=== PATIENT | female | born 1985 | race African-American/Black ===

== ENCOUNTER 2022-06-22 19:09 | Emergency (ER) | payer OTHER, SELFPAY ==
[2022-06-22 19:15] VITALS: BP 136/87; PULSE 66; RESP 18; O2SAT 100
[2022-06-22] MEDS: Droperidol 5 MG/2 ML VIAL 2.5 MG IVP (19:22)
[2022-06-22] MEDS: Normal Saline 1,000 ML 1000 ML IV (19:22)
[2022-06-22 19:26] LABS: HCT 40.8 % (36.0-46.0); HGB 13.9 g/dL (11.2-15.7); MCH 31.7 pg (27.0-33.0); MCHC 34.1 % (32.0-36.0); MCV 93 fL (80-95); MPV 9.8 fL (8.0-11.0); Platelet Count 538 10^3/uL (130-400); RBC 4.39 10^6/uL (3.93-5.22); RDW 12.6 % (11.7-14.6); RDW-SD 43.4 fL; WBC 18.32 10^3/uL (4.4-10.8)
--- NOTE | 2022-06-22 19:34 | ED.GENADUL_ITS ---
Discharge Plan Disposition Patient Disposition: Home Condition: Improving Discharge Details Clinical Impression: Abdominal pain Primary Care Provider: Lissa Clark ED Provider: Nena Rodríguez Home Meds and New Rx's Prescriptions: Continued multivitamin Tablet 1 tab PO DAILY biotin 10 mg tablet 10 mg PO DAILY ferrous sulfate 134 mg (27 mg iron) tablet 134 mg PO DAILY sertraline 50 mg tablet 50 mg PO DAILY Qty: 90 3RF dextroamphetamine-amphetamine [Adderall XR] 10 mg capsule,extended release 24hr 10 mg PO DAILY MDD 10 XR, 20 IR Qty: 28 0RF dextroamphetamine-amphetamine [Adderall] 20 mg tablet 20 mg PO DAILY MDD 10 ER, 20 IR Qty: 28 0RF Rx Instructions: Please allow patient to hot die picker a week early due to travel. Discharge Instructions Instructions: Abdominal Pain (ED) Additional Instructions: I have ordered an abdominal ultrasound for you for tomorrow morning. Do not eat or drink anything after midnight. You are to call [phone] for the time of your ultrasound at 7 am tomorrow morning. Return sooner for new or worsening symptoms After your ultrasound tomorrow you are to present to the emergency department for your results Referrals: Naomi Nguyen MD [ [facility] STAFF PHYSICIAN] - Lissa Clark NP [Primary Care Provider] - Discharge Data Discharge Date/Time-TO BE ENTERED AT DEPARTURE: 06/22/22 20:43 Medical Decision Making <Nena Rodrígeuz NP - Last Filed: 06/22/22 21:44> This is a 36-year-old that presents with severe upper abdominal pain nausea vomiting and diarrhea after eating pizza this afternoon. Denies similar history. No history of abdominal surgery. We will obtain IV access give 1 L of normal saline 2.5 mg of IV droperidol 40 mg of IV pantoprazole. Routine labs to include CBC CMP lipase. Repeat abdominal exam remains benign. She remains hemodynamically stable while monitored in the department. Her labs returned unremarkable with exception of an elevated white count which is likely stress-induced. Her symptoms are markedly improved after receiving fluid droperidol and pantoprazole She is stable and agreeable to discharged home she will return tomorrow morning for scheduled outpatient abdominal ultrasound to evaluate her gallbladder. <Haris Briggs MD - Last Filed: 06/28/22 14:07> Note: I was not involved in the care of this patient. I was not consulted. My involvement was not requested. The patient was evaluated independently by JAYLEEN Rodríguez. Diagnostic workup and treatment plan, including disposition determination, was performed by JAYLEEN Rodríguez. HPI <Nena Rodríugez NP - Last Filed: 06/22/22 21:44> General Date/Time Provider Initiated Documentation: 06/22/22 19:12 . Limitations to Documentation: no limitations . Information obtained by: patient . HPI Narrative: This is a 36-year-old female patient who reports she was in her usual state of health today. She had some pizza and then laid down for a nap. She states that she was awoken by severe generalized upper abdominal pain nausea vomiting and diarrhea. Her symptoms persisted for about 3 hours so she decided to present to the emergency department for evaluation. She denies any similar history. There were others that eat the pizza that did not have the similar symptoms. She denies any history of alcohol use. She has had no abdominal surgeries. She has had no fever.No blood noted in her stool or bloody diarrhea Related Data Home Medications Medication Instructions Recorded Confirmed biotin 10 mg tablet 10 mg PO DAILY 06/08/22 06/23/22 dextroamphetamine-amphetamine 20 20 mg PO DAILY #28 tabs 06/08/22 06/23/22 mg tablet (Adderall) dextroamphetamine-amphetamine ER 10 mg PO DAILY #28 caps 06/08/22 06/23/22 10 mg 24hr capsule,extend release (Adderall XR) ferrous sulfate 134 mg (27 mg 134 mg PO DAILY 06/08/22 06/23/22 iron) tablet multivitamin 1 tab PO DAILY 06/08/22 06/23/22 sertraline 50 mg tablet 50 mg PO DAILY #90 tabs 06/08/22 06/23/22 Previous Rx's Medication Instructions Recorded dextroamphetamine-amphetamine 20 20 mg PO DAILY #28 tabs 06/08/22 mg tablet (Adderall) dextroamphetamine-amphetamine ER 10 mg PO DAILY #28 caps 06/08/22 10 mg 24hr capsule,extend release (Adderall XR) sertraline 50 mg tablet 50 mg PO DAILY #90 tabs 06/08/22 Allergies Allergy/AdvReac Type Severity Reaction Status Date / Time environmental allergies Allergy Intermediate Uncoded 06/23/22 08:53 lactose intolerance Allergy Intermediate gut issues Uncoded 06/23/22 08:53 General Stated Complaint: Nausea/Vomit/Diar ALBERT: 3 Review of Systems <Nena Rodríguez NP - Last Filed: 06/22/22 21:44> All systems reviewed & are unremarkable except as noted in HPI and below PFSH <Nena Rodríguez NP - Last Filed: 06/22/22 21:44> All Active Problems (Updated 06/23/22 @ 09:06 by Jose Marmolejo NP) Abdominal pain (Acute) Tobacco abuse (Acute) Major depressive disorder, recurrent, moderate (Acute) JORGE (generalized anxiety disorder) (Acute) ADHD, predominantly inattentive type (Chronic) Depression (Chronic) Family History Mother Melanoma Connective tissue disorder Nicolas-Danlos Syndrome Skin cancer Obesity Hypertension Arthritis Father Depression Hypertension Alcohol use disorder Paternal Grandmother Diabetes Brother Connective tissue disorder Anxiety ADHD Depression Social History Smoking/Tobacco Use Status: Current-Occasional Tobacco Type: e-cigarettes Quit status: considering quitting Counseling given: other Smoking risk assessment performed?: Yes (offered help if pt wants to quit smoking) Alcohol Intake: current Alcohol Intake frequency: 0-2 drinks per day Counseling given: Yes Details: pt feels that alcohol not an issue right now Drug use: Daily Substance use type: marijuana and inhalants Counseling given: No Adopted: No Caregiver/Support person: No Foster care: No Household members: family Housing: house Number of Children: 0 number of grandchildren: 0 Communication Needs: None Education Level: college Details: BS Do you need help understanding health information?: Never 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 Pets and animals: Yes Pets and animals: dog(s) Sexually active: Yes Do you think of yourself as: straight/heterosexual Current gender identity: female What is your relationship status?: never How often do you talk on the phone with friends or family?: three or more times per week How often do you get together with friends or relatives?: twice per week Do you belong to any clubs or organized social groups?: no Panel score (0-1 are the most socially isolated patients): 1 Duration: 15-30 minutes/day Frequency: 1-2 times per week Vesna/Sabianist: None Seatbelt use: always Helmet use: Yes Drive intox or ride w/intox otr hazmat company driver: No Do you feel safe at home: Yes Do you feel safe in your relationship?: Yes Exam <Nena Rodríguez NP - Last Filed: 06/22/22 21:44> Const General: cooperative and acute distress moderate Nutritional Appearance: average body habitus Orientation: alert, awake and oriented x3 HENMT Head: normal to inspection, normocephalic and atraumatic Mouth: oral mucosae normal Chest Chest: normal inspection of the chest Resp Effort & Inspection: tachypneic (Hyperventilating) Cardio Rate: regular rate Rhythm: regular rhythm GI Inspection: normal to inspection and non-distended Palpation: soft, not firm, no guarding, tender in the epigastrum, in the LUQ and in the RUQ and No ascites Auscultation: normal bowel sounds Skin General skin exam: no rashes or lesions noted Neuro General: patient alert, patient awake, patient oriented x3 and no focal motor deficits Extrem General: normal to inspection, full ROM and no pedal edema Course <Nena Rodríguez NP - Last Filed: 06/22/22 21:44> Vital Signs Vital signs: Vital Signs Pulse 66 06/22/22 19:15 Respiratory Rate 18 06/22/22 19:15 Blood Pressure 136/87 06/22/22 19:15 Pulse Oximetry 100 06/22/22 19:15 Temperature Source Oral 06/22/22 19:15 Pulse 66 06/22/22 19:15 Respiratory Rate 18 06/22/22 19:15 Respiratory Effort Normal, Non-Labored 06/22/22 19:14 Blood Pressure 136/87 06/22/22 19:15 Pulse Oximetry 100 06/22/22 19:15 Oxygen Delivery Method Room Air 06/22/22 19:15 Oxygen Flow Rate 0 06/22/22 19:15
[2022-06-22 19:37] LABS: Lipase 48 U/L (16-77)
[2022-06-22 19:43] LABS: ALT 20 U/L (14-59); AST 17 U/L (15-37); Albumin 4.2 g/dL (3.4-5.0); Alkaline Phosphatase 66 U/L (46-116); Anion Gap 14.9 mmol/L (3-11); BUN 10 mg/dL (7-18); Bilirubin, Total 0.3 mg/dL (0.2-1.0); CO2 24.1 mmol/L (21.0-32.0); Calcium 10.1 mg/dL (8.5-10.1); Chloride 103 mmol/L (98-107); Estimated GFR 75.34 (mL/min/1.73m2); Glucose 146 mg/dL (74-106); Magnesium 1.6 mg/dL (1.8-2.4); Potassium 3.3 mmol/L (3.5-5.1); Sodium 142 mmol/L (136-145); Total Protein 8.1 g/dL (6.4-8.2)
[2022-06-22] MEDS: Ketorolac 15 MG/ML VIAL IVP (19:48)
[2022-06-22] MEDS: Pantoprazole 40 MG VIAL IVP (19:48)
[2022-06-22 19:51] LABS: Absolute Lymphocyte Count 2.75 10^3/uL (1.2-3.4); Absolute Monocyte Count 1.65 10^3/uL (0.1-0.8); Absolute Neutrophil Count 13.56 10^3/uL (1.2-6.7); Atypical Lymphocytes % 4; Bands % 1
[2022-06-22 19:52] LABS: Absolute Eosinophil Count 0.37 10^3/uL (0.0-0.7); Diff Comment Manual Differential
[2022-06-22 19:53] LABS: RBC Morphology Normal
[2022-06-22 20:42] VITALS: BP 142/86; PULSE 68; RESP 18; O2SAT 98
== END 2022-06-22 20:43 | disposition home or self-care (01) ==
PROVIDERS: Emergency Provider Nurse Practitioner Acute Care; PCP Nurse Practitioner
DX: R10.10 Upper abdominal pain, unspecified (principal); R11.2 Nausea with vomiting, unspecified; R19.7 Diarrhea, unspecified
CPT/HCPCS: 36415; 80053; 81025; 83690; 96361; 96374; 96375; 99284; 83735; 85025; J1790; J1885

== ENCOUNTER 2022-06-23 08:46 | Emergency (ER) | payer OTHER, SELFPAY ==
[2022-06-23 08:49] VITALS: BP 116/71; PULSE 89; RESP 15; TEMP 36.6; O2SAT 99
--- NOTE | 2022-06-23 09:05 | ED.GENADUL_ITS ---
Discharge Plan Disposition Patient Disposition: Home Condition: Improving Discharge Details Clinical Impression: Abdominal pain Primary Care Provider: Lissa Clark ED Provider: Jose Marmolejo Home Meds and New Rx's Prescriptions: Continued multivitamin Tablet 1 tab PO DAILY biotin 10 mg tablet 10 mg PO DAILY ferrous sulfate 134 mg (27 mg iron) tablet 134 mg PO DAILY sertraline 50 mg tablet 50 mg PO DAILY Qty: 90 3RF dextroamphetamine-amphetamine [Adderall XR] 10 mg capsule,extended release 24hr 10 mg PO DAILY MDD 10 XR, 20 IR Qty: 28 0RF dextroamphetamine-amphetamine [Adderall] 20 mg tablet 20 mg PO DAILY MDD 10 ER, 20 IR Qty: 28 0RF Rx Instructions: Please allow patient to continuous 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 Discontinued dextroamphetamine-amphetamine [Adderall XR] 10 mg capsule,extended release 24hr 10 mg PO DAILY MDD 10 ER, 20 IR Qty: 28 0RF Patient Comments: duplicate 06/23/22 CT dextroamphetamine-amphetamine [Adderall XR] 10 mg capsule,extended release 24hr 10 mg PO DAILY MDD 10 ER, 20 IR Qty: 28 0RF Patient Comments: duplicate 06/23/22 CT Rx Instructions: Please allow patient to continuous 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 dextroamphetamine-amphetamine [Adderall] 20 mg tablet 20 mg PO DAILY MDD 10 ER, 20 IR Qty: 28 0RF Patient Comments: duplicate 06/23/22 CT dextroamphetamine-amphetamine [Adderall] 20 mg tablet 20 mg PO DAILY MDD 10 ER, 20 IR Qty: 28 0RF Patient Comments: duplicate 06/23/22 CT dextroamphetamine-amphetamine [Adderall] 20 mg tablet 20 mg PO DAILY Patient Comments: duplicate 06/23/22 CT Discharge Instructions Instructions: Abdominal Pain (ED) Additional Instructions: Your ultrasound result were reassuring this morning along with your repeat examination and that your abdominal pain is improving. You may slowly advance your diet as tolerated and stay well-hydrated and get plenty of rest today. If you have any new or significant worsening of symptoms feel free to return to the emergency department for reassessment otherwise follow-up your primary care provider as needed. Stand Alone Forms: Work Release Referrals: Lissa Clark, BIOGEOGRAPHER [Primary Care Provider] - (As needed for reassessment) Medical Decision Making Patient presenting to the emergency department for ultrasound results. Patient was seen in the ED last night and treated for nausea vomiting and belly pain. Came back this morning for ultrasound. She states significant improvement, no more vomiting, no pain or discomfort and actually starting to have a return of her appetite. Preliminary results were received from the air analysis engineering technician that stated no findings noted. Reassessed patient's abdomen which was unremarkable and no tenderness noted. Given that patient is improving I feel that no further work-up is needed. After discussion of diagnosis and plan of care patient has no further needs, questions, or concerns and states clear understanding to return to the emergency department for any worsening symptoms. This documentation was generated using [employer] system, please disregard any oddities of phrase or misspellings. Medical Records Medical records reviewed: Yes I reviewed the patient's medical records. Medical records narrative: Reviewed emergency department visit dated last night Imaging Data Radiologic Study: Imaging: Ultrasound Radiologist's impression: Exam(s) US ABDOMEN LIMITED EXAM: US ABDOMEN LIMITED CLINICAL HISTORY: UPPER ABD PAIN TECHNIQUE: Ultrasound abdomen performed using standard protocol. COMPARISON: No exams were available for comparison FINDINGS: LIVER: Normal size. Normalechogenicity. No focal liver lesions are seen.. GALLBLADDER: No evidence of cholelithiasis. No evidence of wall thickening. No pericholecystic fluid identified. BLANC'S SIGN: Negative. BILIARY SYSTEM: No intrahepatic or extrahepatic biliary ductal dilation. RIGHT KIDNEY: Normal size. No evidence of renal calculi. No evidence of hydronephrosis. No suspicious renal mass. No cyst identified. PANCREAS: Normal where visualized. ABDOMINAL AORTA AND IVC: Visualized portions normal caliber. ASCITES: None seen. IMPRESSION: Normal sonographic appearance of the right upper quadrant. Lab Data Lab results reviewed: Yes I reviewed the patient's lab results. HPI General Mode of arrival: ambulatory . Date/Time Provider Initiated Documentation: 06/23/22 09:00 . Limitations to Documentation: no limitations . Information obtained by: patient and RN notes reviewed . History of Present Illness 36 year old F presents to the emergency department with the chief complaint of Here for ultrasound results, abdominal pain, Quality is described as aching, and is localized to the abdomen. Patient reports no radiation. Patient started experiencing this day(s) (1) and it has been now resolved. No exacerbating factors reported . Patient notes no other symptoms.. Related Data Home Medications Medication Instructions Recorded Confirmed biotin 10 mg tablet 10 mg PO DAILY 06/08/22 06/23/22 dextroamphetamine-amphetamine 20 20 mg PO DAILY #28 tabs 06/08/22 06/23/22 mg tablet (Adderall) dextroamphetamine-amphetamine ER 10 mg PO DAILY #28 caps 06/08/22 06/23/22 10 mg 24hr capsule,extend release (Adderall XR) ferrous sulfate 134 mg (27 mg 134 mg PO DAILY 06/08/22 06/23/22 iron) tablet multivitamin 1 tab PO DAILY 06/08/22 06/23/22 sertraline 50 mg tablet 50 mg PO DAILY #90 tabs 06/08/22 06/23/22 Previous Rx's Medication Instructions Recorded dextroamphetamine-amphetamine 20 20 mg PO DAILY #28 tabs 06/08/22 mg tablet (Adderall) dextroamphetamine-amphetamine ER 10 mg PO DAILY #28 caps 06/08/22 10 mg 24hr capsule,extend release (Adderall XR) sertraline 50 mg tablet 50 mg PO DAILY #90 tabs 06/08/22 Allergies Allergy/AdvReac Type Severity Reaction Status Date / Time environmental allergies Allergy Intermediate Uncoded 06/23/22 08:53 lactose intolerance Allergy Intermediate gut issues Uncoded 06/23/22 08:53 General Stated Complaint: Recheck ALBERT: 4 Review of Systems Constitutional Constitutional: Denies chills and Denies fever(s) Gastrointestinal Gastrointestinal: Reports as per HPI, Denies abdominal pain, Denies vomiting and Denies hematemesis PFSH All Active Problems (Updated 06/23/22 @ 09:06 by Jose Marmolejo NP) Abdominal pain (Acute) Tobacco abuse (Acute) Major depressive disorder, recurrent, moderate (Acute) JORGE (generalized anxiety disorder) (Acute) ADHD, predominantly inattentive type (Chronic) Depression (Chronic) Family History Mother Melanoma Connective tissue disorder Nicolas-Danlos Syndrome Skin cancer Obesity Hypertension Arthritis Father Depression Hypertension Alcohol use disorder Paternal Grandmother Diabetes Brother Connective tissue disorder Anxiety ADHD Depression Social History Smoking/Tobacco Use Status: Current-Occasional Tobacco Type: e-cigarettes Quit status: considering quitting Counseling given: other Smoking risk assessment performed?: Yes (offered help if pt wants to quit smoking) Alcohol Intake: current Alcohol Intake frequency: 0-2 drinks per day Counseling given: Yes Details: pt feels that alcohol not an issue right now Drug use: Daily Substance use type: marijuana and inhalants Counseling given: No Adopted: No Caregiver/Support person: No Foster care: No Household members: family Housing: house Number of Children: 0 number of grandchildren: 0 Communication Needs: None Education Level: college Details: BS Do you need help understanding health information?: Never 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 Pets and animals: Yes Pets and animals: dog(s) Sexually active: Yes Do you think of yourself as: straight/heterosexual Current gender identity: female What is your relationship status?: never How often do you talk on the phone with friends or family?: three or more times per week How often do you get together with friends or relatives?: twice per week Do you belong to any clubs or organized social groups?: no Panel score (0-1 are the most socially isolated patients): 1 Duration: 15-30 minutes/day Frequency: 1-2 times per week Vesna/Scientologist: None Seatbelt use: always Helmet use: Yes Drive intox or ride w/intox bulk truck driver: No Do you feel safe at home: Yes Do you feel safe in your relationship?: Yes Exam Const General: cooperative Orientation: alert, awake and oriented x3 Resp Effort & Inspection: normal respiratory effort and able to speak in complete sentences Auscultation: clear to auscultation bilaterally Cardio Rate: regular rate Rhythm: regular rhythm Heart Sounds: S1 normal and S2 normal GI Palpation: soft, no hepatosplenomegaly, not firm, no guarding, no masses, no pulsatile masses, not rigid, no splenomegaly and nontender Auscultation: hypoactive bowel sounds Back/Spine/Pelvis Back: no CVA tenderness Neuro General: patient alert, patient awake, patient oriented x3, gait normal and moves all extremities Course Vital Signs Vital signs: Vital Signs Temperature 36.6 C 06/23/22 08:49 Pulse 89 06/23/22 08:49 Respiratory Rate 15 06/23/22 08:49 Blood Pressure 116/71 06/23/22 08:49 Pulse Oximetry 99 06/23/22 08:49 Temperature 36.6 C 06/23/22 08:49 Temperature Source Temporal Artery Scan 06/23/22 08:49 Pulse 89 06/23/22 08:49 Respiratory Rate 15 06/23/22 08:49 Respiratory Effort Normal 06/23/22 08:50 Blood Pressure 116/71 06/23/22 08:49 Blood Pressure Position Sitting 06/23/22 08:49 Pulse Oximetry 99 06/23/22 08:49 Oxygen Delivery Method Room Air 06/23/22 08:49 Oxygen Flow Rate 0 06/23/22 08:49 Pain Level 0 06/23/22 08:49 PAWSS Have you Been Recently Intoxicated or Drunk Within the Last 30 days?: No Have you Ever Experienced Previous Episodes of Alcohol Withdrawal?: No Have you ever Experienced Withdrawal Seizures?: No Have you ever Experienced Delirium Tremens(DT)s?: No Have you ever undergone Alcohol Rehabilitation Treatment (i.e, inpt ot outpatient treatment programs)?: No Have you ever Experienced Blackouts?: No Have you ever Combined Alcohol with other Downers within the last 90 days?: No Have you ever Combined Alcohol with any other Substance of Abuse during the last 90 days?: No Result: 0
== END 2022-06-23 09:23 | disposition home or self-care (01) ==
PROVIDERS: Emergency Provider Nurse Practitioner Family; PCP Nurse Practitioner
DX: Z71.2 Person consulting for explanation of examination or test findings (principal); R10.9 Unspecified abdominal pain
CPT/HCPCS: 99281; 99282

== ENCOUNTER 2022-07-19 03:42 | Outpatient (CLI) | payer OTHER, SELFPAY ==
[2022-07-22 12:16] LABS: Antimullerian Hormone 2.2 ng/mL (0.15-7.5)
== END 2022-07-19 03:43 | disposition home or self-care (01) ==
LOC: LBO 03:42
PROVIDERS: PCP Nurse Practitioner; Visit Provider Obstetrics & Gynecology Gynecology
DX: Z31.69 Encounter for other general counseling and advice on procreation (principal)
CPT/HCPCS: 36415; 86850; 86900; 86901; 83520

== ENCOUNTER 2022-12-27 11:17 | Outpatient (REF) | payer OTHER, SELFPAY ==
--- NOTE | 2022-12-27 10:30 | LIPBX_PTH ---
PATIENT: Miya Dee LOC: [facility] U#:[id number] AGE/SX: 37/F ROOM: RE12/27/[address]: Reji Dey MD : 1985 BED: DIS: 12/27/2022 SPEC #: [id number] RECD: 12/27/22 16:29 STATUS: SWATI REQ #: [id number] COURTNEY: 12/27/22 10:[address]: Reji Dey DEPT: Surgical Specimen RECD BY: Marlys Fermin ENTERED: 12/27/22 16:30 SP TYPE: LIPBX OTHR DR: Lissa Clark APRN Tissues: 1 - LIP BIOPSY/RESECTION Procedures: GROSS AND MICRO LEVEL 4 Comments: [id number]
== END 2022-12-27 11:18 | disposition home or self-care (01) ==
LOC: LBN 11:17
PROVIDERS: PCP Nurse Practitioner; Visit Provider Otolaryngology
DX: D10.0 Benign neoplasm of lip (principal)
CPT/HCPCS: 88305

== ENCOUNTER 2023-02-08 11:17 | Outpatient (CLI) | payer MEDICAID, SELFPAY ==
--- NOTE | 2023-02-08 11:15 | RT.EKG_ITS ---
APPROVED REPORT Exam: Resting ECG Reason for Exam: medication Patient Location: O HR:80 bpm ECG Measurements Heart Rate 80 AXIS NM 139 P 41 QRSd 88 QRS 42 QT 352 T 31 QTc 406 Conclusion Sinus rhythm...normal P axis, V-rate 50- 99 Borderline T wave abnormalities...T/QRS ratio < 1/20 or flat T I have reviewed and interpreted ECG and agree with software generated interpretation.
== END 2023-02-08 11:18 | disposition home or self-care (01) ==
LOC: DI.KIM 11:18
PROVIDERS: PCP Nurse Practitioner; Visit Provider Nurse Practitioner
DX: Z51.81 Encounter for therapeutic drug level monitoring (principal)
CPT/HCPCS: 93010

== ENCOUNTER → 2023-05-20 00:47 | Outpatient (CLI) | payer MEDICAID, SELFPAY ==
--- NOTE | 2023-05-20 07:30 | DI.MRI_ITS ---
Exam(s) MR BRAIN WO EXAM: MR BRAIN WO CLINICAL HISTORY: Head injury x 2, LOC 12/2021,headaches,poor memory.r51.9,r41.3,z87.898 TECHNIQUE: Multiplanar multisequence MRI of the brain was performed. COMPARISON: No exams were available for comparison FINDINGS: CEREBRAL PARENCHYMA: There is no evidence of intracranial hemorrhage, mass effect, or shift of midline structures. There are no extra-axial fluid collections. Ventricles are not enlarged or shifted. There is no significant focal signal abnormality in the cerebellar hemispheres nor within the saji, m idbrain, and thalami. There is no abnormal signal abnormality in the periventricular white matter. Small developmental sub lenticular cyst on the left side incidentally noted. There is no significant focal signal abnormality evident on diffusion imaging to suggest acute ischem ic event. No evidence of demyelinating disease. PITUITARY GLAND: No mass nor parasellar abnormality. No obvious abnormality in the cavernous sinuses. FLOW VOIDS: The expected flow void are noted. No evidence of obvious aneurysm nor obvious vascular ma lformation. PARANASAL SINUSES: Mucosal thickening in both maxillary sinuses. There is a prominent post inflammat ory retention cyst in the right maxillary sinus which measures 2.6 cm AP x 2 cm wide by 3 cm cyst in the 30 sinus. No acute fluid levels. Mild mucosal thickening is noted in the sphenoid and ethmoidal air cells. ORBITS: No obvious findings. IMPRESSION: No significant intracranial findings on this noninfused MRI scan of the brain. Paranasal sinus disease as above. There is a prominent post inflammatory retention cysts noted in th e right maxillary sinus. DATA REPOSITORY:
== END ==
PROVIDERS: PCP Nurse Practitioner; Visit Provider Nurse Practitioner
DX: R51.9 Headache, unspecified (principal); R41.3 Other amnesia; J34.1 Cyst and mucocele of nose and nasal sinus; J32.4 Chronic pansinusitis; Z87.898 Personal history of other specified conditions
CPT/HCPCS: 70551

== ENCOUNTER 2023-05-20 01:52 | Outpatient (CLI) | payer MEDICAID, SELFPAY ==
[2023-05-20 13:37] LABS: ALT 21 U/L (14-59); AST 12 U/L (15-37)
== END 2023-05-20 01:53 | disposition home or self-care (01) ==
PROVIDERS: PCP Nurse Practitioner; Visit Provider Nurse Practitioner Gerontology
DX: F10.20 Alcohol dependence, uncomplicated (principal)
CPT/HCPCS: 36415; 84450; 84460

== ENCOUNTER 2023-07-07 15:15 | Emergency (ER) | payer MEDICAID, SELFPAY ==
[2023-07-07 15:18] VITALS: PULSE 69; RESP 18; TEMP 36.4; O2SAT 94
--- NOTE | 2023-07-07 15:30 | DI.CT_ITS ---
Exam(s) CT ABDOMEN PELVIS W EXAM: CT ABDOMEN PELVIS W CLINICAL HISTORY: lower abdominal pain. TECHNIQUE: Imaging Protocol: Axial computed tomography images with coronal and sagittal reformatted images were created and reviewed CONTRAST MATERIAL: Intravenous: Omnipaque-350 100cc Oral: None COMPARISON: No exams were available for comparison FINDINGS: Images blurred by motion artifact VISUALIZED LUNG BASES: No nodules nor pleural effusions evident. ABDOMEN: There is no ascites. LIVER: There are no focal hepatic lesions evident. No dilated intrahepatic ducts. GALLBLADDER/BILIARY: No obvious gallbladder pathology. CBD is not dilated. PANCREAS: No evidence of pancreatic mass nor dilatation of the pancreatic duct. SPLEEN: Spleen is not enlarged. No obvious intrasplenic lesions. Splenic and portal veins are paten t. ADRENALS: There are no significant adrenal masses. KIDNEYS:No cysts evident. No solid renal masses. No calculi nor hydronephrosis.. ABDOMINAL AORTA: Abdominal aorta is not enlarged. LYMPH NODES:There is no retroperitoneal nor paraaortic adenopathy. ABDOMINAL WALL: No evidence of significant anterior abdominal wall nor inguinal hernia. GI: There is no evidence of bowel obstruction, free air, nor abscess. PELVIS: GI: No evidence of appendicitis.Abundant fecal material noted in the colon but no evidence of signifi cant diverticular disease. LYMPH NODES: There is no intrapelvic nor inguinal adenopathy. REPRODUCTIVE: Uterus normal size. There is a cyst in the left adnexa probably an ovarian cyst measur ing 3.3 x 2.5 cm. Appears unilocular. No surrounding fluid nor fluid in the cul-de-sac. Right adne xa appears unremarkable. URINARY BLADDER: No calculi nor obvious masses evident OSSEOUS: No fractures and no significant osseous lesions. 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 There is no disc space n arrowing at this level evident. IMPRESSION: 1. Study somewhat limited by motion artifact. However, there appears to be a 3.3 x 2.5 cm left ovar larissa cyst. No obvious free fluid. Right adnexa unremarkable. 2. No evidence of appendicitis. 3. Abundant fecal material noted in the colon. No significant diverticular disease. Called by myself to ER. RADIATION DOSE DELIVERED: 687.74mGy.cm Total DLP DATA REPOSITORY: All CT scans at this facility are submitted to the National Radiology Data Registry (NRDR) Dose Index Registry (DIR) with the [employer] (A[employer]). RADIATION OPTIMIZATION: All CT scans at this facility use at least one of these dose optimization te chniques: automated exposure control; mA and/or kV adjustment per patient size (includes targeted exa ms where dose is matched to clinical indication); or iterative reconstruction.
--- NOTE | 2023-07-07 15:31 | W.ED.GENAD ---
Discharge Plan Disposition Patient Disposition: Home Condition: Stable Discharge Details Clinical Impression: Nausea & vomiting, Abdominal pain Primary Care Provider: Lissa Clark ED Provider: El Card Home Meds and New Rx's Prescriptions: New ondansetron 4 mg tablet,disintegrating 4 mg PO Q8H PRN (Reason: nausea and vomiting) Qty: 30 0RF Continued naltrexone 50 mg tablet 50 mg PO DAILY dextroamphetamine-amphetamine [Adderall XR] 10 mg capsule,extended release 24hr 10 mg PO DAILY MDD 10 XR, 20 IR Qty: 28 0RF dextroamphetamine-amphetamine [Adderall] 20 mg tablet 20 mg PO DAILY MDD 10 ER, 20 IR Qty: 28 0RF Rx Instructions: Please allow patient to cone picker a week early due to travel. dextroamphetamine-amphetamine 10 mg capsule,extended release 24hr 10 mg PO DAILY MDD 10 ER, 20 IR Qty: 28 0RF dextroamphetamine-amphetamine 20 mg tablet 20 mg PO DAILY MDD 10ER, 20IR Qty: 28 0RF dextroamphetamine-amphetamine [Adderall XR] 10 mg capsule,extended release 24hr 10 mg PO DAILY MDD 10 XR, 20 IR Qty: 28 0RF dextroamphetamine-amphetamine 20 mg tablet 20 mg PO DAILY MDD 10ER, 20IR Qty: 28 0RF zinc acetate 50 mg (zinc) capsule 50 mg PO DAILY cholecalciferol (vitamin D3) 25 mcg (1,000 unit) capsule 25 mcg PO DAILY iron 65 mg PO ascorbate calcium (vitamin C) 500 mg tablet 500 mg PO DAILY magnesium 50 mg PO sertraline 50 mg tablet 50 mg PO DAILY Qty: 90 3RF Discharge Instructions Additional Instructions: Your blood work and CAT scan did not show any significant findings, you do have a small left-sided ovarian cyst. Follow-up with your primary care provider within 1 week especially if you continue to have symptoms If you feel more ill, or have new symptoms such as difficulty breathing or high fevers return to the emergency department for reevaluation HPI General Date/Time Provider Initiated Documentation: 07/07/23 15:20. Limitations to Documentation: no limitations. Information obtained by: patient. History of Present Illness 37 year old F presents to the emergency department with the chief complaint of abdominal pain, described as severe, Quality is described as sharp, and is localized to the abdomen. Patient reports no radiation. Patient started experiencing this hour(s) (8) and it has been constant. No relieving factors improve symptom(s), No exacerbating factors reported . Patient notes fever/chills; denies chest pain and shortness of breath. Patient did receive the following treatments prior to arrival, none Related Data Home Medications Medication Instructions Recorded Confirmed ascorbate calcium (vitamin C) 500 500 mg PO DAILY 04/13/23 04/13/23 mg tablet cholecalciferol (vitamin D3) 25 25 mcg PO DAILY 04/13/23 04/13/23 mcg (1,000 unit) capsule iron 65 mg PO 04/13/23 04/13/23 magnesium 50 mg PO 04/13/23 04/13/23 zinc acetate 50 mg (zinc) capsule 50 mg PO DAILY 04/13/23 04/13/23 dextroamphetamine-amphetamine 20 20 mg PO DAILY #28 tabs 05/04/23 05/04/23 mg tablet dextroamphetamine-amphetamine 20 20 mg PO DAILY #28 tabs 05/04/23 05/04/23 mg tablet dextroamphetamine-amphetamine 20 20 mg PO DAILY #28 tabs 05/04/23 05/04/23 mg tablet (Adderall) dextroamphetamine-amphetamine ER 10 mg PO DAILY #28 caps 05/04/23 05/04/23 10 mg 24hr capsule,extend release dextroamphetamine-amphetamine ER 10 mg PO DAILY #28 caps 05/04/23 05/04/23 10 mg 24hr capsule,extend release (Adderall XR) dextroamphetamine-amphetamine ER 10 mg PO DAILY #28 caps 05/04/23 05/04/23 10 mg 24hr capsule,extend release (Adderall XR) naltrexone 50 mg tablet 50 mg PO DAILY 05/04/23 sertraline 50 mg tablet 50 mg PO DAILY #90 tabs 06/22/23 ondansetron 4 mg disintegrating 4 mg PO Q8H PRN nausea and 07/07/23 tablet vomiting #30 tabs Previous Rx's Medication Instructions Recorded dextroamphetamine-amphetamine 20 20 mg PO DAILY #28 tabs 05/04/23 mg tablet dextroamphetamine-amphetamine 20 20 mg PO DAILY #28 tabs 05/04/23 mg tablet dextroamphetamine-amphetamine 20 20 mg PO DAILY #28 tabs 05/04/23 mg tablet (Adderall) dextroamphetamine-amphetamine ER 10 mg PO DAILY #28 caps 05/04/23 10 mg 24hr capsule,extend release dextroamphetamine-amphetamine ER 10 mg PO DAILY #28 caps 05/04/23 10 mg 24hr capsule,extend release (Adderall XR) dextroamphetamine-amphetamine ER 10 mg PO DAILY #28 caps 05/04/23 10 mg 24hr capsule,extend release (Adderall XR) sertraline 50 mg tablet 50 mg PO DAILY #90 tabs 06/22/23 ondansetron 4 mg disintegrating 4 mg PO Q8H PRN nausea and 07/07/23 tablet vomiting #30 tabs Allergies Allergy/AdvReac Type Severity Reaction Status Date / Time environmental allergies Allergy Intermediate unknown Uncoded 07/07/23 15:22 lactose intolerance Allergy Intermediate gut issues Uncoded 07/07/23 15:22 General Stated Complaint: Abd Prob ALBERT: 3 Review of Systems All systems reviewed & are unremarkable except as noted in HPI and below Constitutional Constitutional: Denies chills and Denies fever(s) Cardiovascular Cardiovascular: Denies chest pain and Denies dyspnea Respiratory Respiratory: Denies cough and Denies dyspnea Gastrointestinal Gastrointestinal: Reports abdominal pain and Reports vomiting Genitourinary Genitourinary: Denies dysuria Integumentary/Breasts Skin/Breast: Denies rash Exam Const Orientation: alert [facility] Head: normal to inspection Ears: external ears normal General nose exam: external nose normal Mouth: moist mucous membranes Eyes General: appearance normal, both eyes and all related structures Neck Neck: normal visual inspection Resp Effort & Inspection: normal respiratory effort and able to speak in complete sentences Cardio Rate: regular rate GI Palpation: soft and tender Skin General skin exam: no rashes or lesions noted Neuro General: patient alert and patient oriented x3 Extrem General: normal to inspection Psych Mental Status: mental status grossly normal Course Vital Signs Vital signs: Vital Signs Temperature 36.4 C L 07/07/23 15:18 Pulse 69 07/07/23 15:18 Respiratory Rate 18 07/07/23 15:18 Pulse Oximetry 94 07/07/23 15:18 Temperature 36.4 C L 07/07/23 15:18 Temperature Source Skin 07/07/23 15:18 Pulse 69 07/07/23 15:18 Respiratory Rate 18 07/07/23 15:18 Pulse Oximetry 94 07/07/23 15:18 Oxygen Delivery Method Room Air 07/07/23 15:18 Oxygen Flow Rate 0 07/07/23 15:18 Medical Decision Making 37-year-old female with a history of ADHD, anxiety, depression, daily marijuana use, who comes in with sharp severe lower abdominal pain starting this morning. She says it started after she woke up from a nap, also has had vomiting. She denies any other drugs other than marijuana use, does not use alcohol. She states she has had pain like this before with negative workups. She is alert and moaning very loudly when I entered the room, she does constantly fidget and move on the bed. Abdomen is soft with tenderness in the left lower quadrant and right lower quadrant when distracted seems to have less tenderness. Suspect this could be related to her daily marijuana use but given degree of pain we will check a CBC, CMP, lipase, lactate and obtain a CT abdomen pelvis to evaluate for entities such as appendicitis and diverticulitis. Labs unremarkable, CT shows left-sided ovarian cyst. Patient now asymptomatic and feels significantly better and has no abdominal tenderness on exam, given the cyst is less than 4 cm doubt torsion. Given she has no pain now do not feel pelvic ultrasound indicated. She is stable for discharge advised to follow-up with her PCP and return precautions given Differential Diagnosis Differential Diagnosis: Cyclic vomiting syndrome, cannabinoid hyperemesis, appendicitis, diverticul Medical Records Medical records reviewed: Yes I reviewed the patient's medical records. Imaging Data Radiologic Study: Attestation: I personally reviewed and interpreted this imaging study as follows: Imaging: CT Scan Radiologist's impression: IMPRESSION: 1. Study somewhat limited by motion artifact. However, there appears to be a 3.3 x 2.5 cm left ovarian cyst. No obvious free fluid. Right adnexa unremarkable. 2. No evidence of appendicitis. 3. Abundant fecal material noted in the colon. No significant diverticular disease. Lab Data Lab results reviewed: Yes I reviewed the patient's lab results. Quality:SDOH Health Related Social Needs: No Data to Display [facility] All Active Problems (Updated 07/07/23 @ 17:41 by El Card MD) Abdominal pain (Acute) Nausea & vomiting (Acute) Alcohol use disorder (Chronic) Medication monitoring encounter (Acute) Diarrhea (Acute ~08/2022) 09/23/22 GI Refractory nausea and vomiting (Acute ~08/2022) 09/23/22 DH GI Chronic rhinitis (Acute) 08/23/22 DH Allergy Rh D negative blood type (Acute) Encounter for preconception consultation (Acute) 07/2022. AMH 2.2 (0.15-7.5 ng/ml) Tobacco abuse (Acute) Major depressive disorder, recurrent, moderate (Acute) JORGE (generalized anxiety disorder) (Acute) ADHD, predominantly inattentive type (Chronic) Depression (Chronic) Medical History (Updated 07/07/23 @ 17:41 by El Card MD) Nasal septal perforation Lip lesion Allergic rhinitis due to pollen 10/11/22 Dh Allergy Allergic rhinitis due to animal (cat) (dog) hair and dander 10/11/22 DH Allergy, and allergy skin testing Lactose intolerance 08/23/22 saw DH Allergy Hip dysplasia As a child. Family History Mother Melanoma Connective tissue disorder Nicolas-Danlos Syndrome Skin cancer Obesity Hypertension Arthritis Father Depression Hypertension Alcohol use disorder Paternal Grandmother Diabetes Brother Connective tissue disorder Anxiety ADHD Depression Social History (Updated 08/05/22 @ 18:43 by Miriam Matute MD) Smoking/Tobacco Use Status: Current-Occasional Tobacco Type: e-cigarettes Quit status: considering quitting Counseling given: other Smoking risk assessment performed?: Yes (offered help if pt wants to quit smoking) Alcohol Intake: current Alcohol Intake frequency: 0-2 drinks per day Counseling given: Yes Details: pt feels that alcohol not an issue right now Drug use: Daily Substance use type: marijuana and inhalants Counseling given: No Adopted: No Caregiver/Support person: No Foster care: No Household members: family and other Details: New relationship - Nate Housing: house Number of Children: 0 number of grandchildren: 0 Communication Needs: None Education Level: college Details: BS Do you need help understanding health information?: Never 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 Pets and animals: Yes Pets and animals: dog(s) Sexually active: Yes Do you think of yourself as: straight/heterosexual Current gender identity: female What is your relationship status?: never How often do you talk on the phone with friends or family?: three or more times per week How often do you get together with friends or relatives?: twice per week Do you belong to any clubs or organized social groups?: no Panel score (0-1 are the most socially isolated patients): 1 Duration: 15-30 minutes/day Frequency: 1-2 times per week Vesna/Pentecostalism: None Seatbelt use: always Helmet use: Yes Drive intox or ride w/intox route relief driver: No Do you feel safe at home: Yes Do you feel safe in your relationship?: Yes
[2023-07-07 16:02] LABS: Abs Immature Grans 0.03 10^3/uL (0.0-0.06); Absolute Basophil Count 0.05 10^3/uL (0.0-0.2); Absolute Eosinophil Count 0.54 10^3/uL (0.0-0.7); Absolute Monocyte Count 0.39 10^3/uL (0.1-0.8); Absolute Neutrophil Count 7.62 10^3/uL (1.2-6.7); Basophils % 0.5 %; Eosinophils % 5.2 %; HCT 35.2 % (36.0-46.0); HGB 11.8 g/dL (11.2-15.7); Immature Grans % 0.3 %; Lactate 1.1 mmol/L (0.6-1.4); Lymphocytes % 17.3 %; MCH 30.3 pg (27.0-33.0); MCHC 33.5 % (32.0-36.0); MCV 91 fL (80-95); MPV 9.6 fL (8.0-11.0); Monocytes % 3.7 %; Platelet Count 469 10^3/uL (130-400); RBC 3.89 10^6/uL (3.93-5.22); RDW 12.7 % (11.7-14.6); RDW-SD 42.1 fL; WBC 10.43 10^3/uL (4.4-10.8)
[2023-07-07 16:19] LABS: ALT 20 U/L (14-59); AST 14 U/L (15-37); Albumin 4.3 g/dL (3.4-5.0); Alkaline Phosphatase 68 U/L (46-116); Anion Gap 8.1 mmol/L (3-11); BUN 9 mg/dL (7-18); Bilirubin, Total 0.5 mg/dL (0.2-1.0); CO2 27.9 mmol/L (21.0-32.0); CREATININE 0.8 mg/dL (0.55-1.02); Calcium 9.7 mg/dL (8.5-10.1); Chloride 102 mmol/L (98-107); Estimated GFR 97.87 (mL/min/1.73m2); Glucose 110 mg/dL (74-106); Lipase 28 U/L (16-77); Magnesium 1.9 mg/dL (1.8-2.4); Potassium 3.7 mmol/L (3.5-5.1); Sodium 138 mmol/L (136-145); Total Protein 7.6 g/dL (6.4-8.2)
[2023-07-07] MEDS: Normal Saline 1,000 ML 1000 ML IV (16:20)
[2023-07-07] MEDS: Normal Saline - Diluent 50 ML VIAL IJ (16:22)
[2023-07-07] MEDS: Omnipaque 350 MG/ML 100 ML BTL IJ (16:22)
[2023-07-07 16:29] LABS: HCG Qual (Serum) Negative
[2023-07-07] MEDS: Droperidol 5 MG/2 ML VIAL 2.5 MG IVP (16:35)
[2023-07-07] MEDS: Ketorolac 15 MG/ML VIAL IVP (16:36)
[2023-07-07 16:37] VITALS: BP 152/87; PULSE 57; RESP 16; O2SAT 100
[2023-07-07 16:41] LABS: Procalcitonin < 0.1 ng/mL
[2023-07-07 17:44] VITALS: BP 139/75; PULSE 62; RESP 16; TEMP 36.7; O2SAT 99
== END 2023-07-07 17:40 | disposition home or self-care (01) ==
PROVIDERS: Emergency Provider Emergency Medicine; PCP Nurse Practitioner
DX: R10.30 Lower abdominal pain, unspecified (principal); R11.2 Nausea with vomiting, unspecified; N83.202 Unspecified ovarian cyst, left side; F17.290 Nicotine dependence, other tobacco product, uncomplicated
CPT/HCPCS: 36415; 80053; 83690; 84145; 96361; 96374; 96375; 99285; 74177; 83605; 83735; 84703; 85025; 99284; J1790; J1885; J3490

== ENCOUNTER 2023-08-06 06:51 | Emergency (ER) | payer MEDICAID, SELFPAY ==
--- NOTE | 2023-08-06 07:00 | RT.EKG_ITS ---
APPROVED REPORT Exam: Resting ECG Reason for Exam: abominal pain Patient Location: E HR:60 bpm ECG Measurements Heart Rate 60 AXIS MD 162 P 73 QRSd 80 QRS 64 QT 413 T 28 QTc 413 Conclusion Sinus rhythm...normal P axis, V-rate 60- 99 Low voltage, precordial leads...precordial leads <1.0mV sinus rhythm, normal axis, normal intervals, low voltage, t wave inversions V1-V3
[2023-08-06 07:01] VITALS: BP 107/70; PULSE 61; RESP 16; TEMP 36.6; O2SAT 100
[2023-08-06 07:07] VITALS: BP 107/70; PULSE 56; O2SAT 97
[2023-08-06 07:16] VITALS: BP 159/138; PULSE 98; O2SAT 99
--- NOTE | 2023-08-06 07:17 | W.ED.GENAD ---
Discharge Plan Disposition Patient Disposition: Home Condition: Improving Discharge Details Chief Complaint: Abd Prob Clinical Impression: Abdominal pain Primary Care Provider: Lissa Clark ED Provider: Shashi Carmen Home Meds and New Rx's Prescriptions: No Action naltrexone 50 mg tablet 50 mg PO DAILY dextroamphetamine-amphetamine [Adderall XR] 10 mg capsule,extended release 24hr 10 mg PO DAILY MDD 10 XR, 20 IR Qty: 28 0RF dextroamphetamine-amphetamine 20 mg tablet 20 mg PO DAILY MDD 10ER, 20IR Qty: 28 0RF zinc acetate 50 mg (zinc) capsule 50 mg PO DAILY cholecalciferol (vitamin D3) 25 mcg (1,000 unit) capsule 25 mcg PO DAILY iron 65 mg PO QDAY ascorbate calcium (vitamin C) 500 mg tablet 500 mg PO DAILY magnesium 50 mg PO dextroamphetamine-amphetamine 10 mg capsule,extended release 24hr 10 mg PO DAILY MDD 10 ER, 20 IR Qty: 28 0RF sertraline 50 mg tablet 50 mg PO DAILY Qty: 90 3RF ondansetron 4 mg tablet,disintegrating 4 mg PO Q8H PRN (Reason: nausea and vomiting) Qty: 30 0RF Discharge Instructions Instructions: Abdominal Pain, Adult ED Additional Instructions: Please follow-up with your primary care physician and GI specialist. Please return to the emergency department for any worsening symptoms HPI General Date/Time Provider Initiated Documentation: 08/06/23 06:56. HPI Narrative: 37-year-old female history of abdominal migraine presents with abdominal discomfort recurrent acute on chronic over the last several months, CT scan 1 month ago showing ovarian cyst and stool burden presents with acute abdominal pain this morning associate with nausea, no vomiting. Endorses recent endoscopy negative. History of alcohol abuse has been sober for approximately 120 days, does smoke marijuana Related Data Home Medications Medication Instructions Recorded Confirmed ascorbate calcium (vitamin C) 500 500 mg PO DAILY 04/13/23 08/06/23 mg tablet cholecalciferol (vitamin D3) 25 25 mcg PO DAILY 04/13/23 08/06/23 mcg (1,000 unit) capsule iron 65 mg PO QDAY 04/13/23 08/06/23 magnesium 50 mg PO 04/13/23 04/13/23 zinc acetate 50 mg (zinc) capsule 50 mg PO DAILY 04/13/23 08/06/23 dextroamphetamine-amphetamine 20 20 mg PO DAILY #28 tabs 05/04/23 08/06/23 mg tablet dextroamphetamine-amphetamine ER 10 mg PO DAILY #28 caps 05/04/23 05/04/23 10 mg 24hr capsule,extend release (Adderall XR) naltrexone 50 mg tablet 50 mg PO DAILY 05/04/23 sertraline 50 mg tablet 50 mg PO DAILY #90 tabs 06/22/23 08/06/23 ondansetron 4 mg disintegrating 4 mg PO Q8H PRN nausea and 07/07/23 08/06/23 tablet vomiting #30 tabs dextroamphetamine-amphetamine ER 10 mg PO DAILY #28 caps 07/25/23 08/06/23 10 mg 24hr capsule,extend release Previous Rx's Medication Instructions Recorded dextroamphetamine-amphetamine 20 20 mg PO DAILY #28 tabs 05/04/23 mg tablet dextroamphetamine-amphetamine ER 10 mg PO DAILY #28 caps 05/04/23 10 mg 24hr capsule,extend release (Adderall XR) sertraline 50 mg tablet 50 mg PO DAILY #90 tabs 06/22/23 ondansetron 4 mg disintegrating 4 mg PO Q8H PRN nausea and 07/07/23 tablet vomiting #30 tabs dextroamphetamine-amphetamine ER 10 mg PO DAILY #28 caps 07/25/23 10 mg 24hr capsule,extend release Allergies Allergy/AdvReac Type Severity Reaction Status Date / Time environmental allergies Allergy Intermediate unknown Uncoded 08/06/23 07:09 lactose intolerance Allergy Intermediate gut issues Uncoded 08/06/23 07:09 General Stated Complaint: Abd Prob ALBERT: 3 Review of Systems Narrative: Review of Systems Constitutional: negative Eyes: negative ENT: negative Cardiovascular: negative Respiratory: negative Gastrointestinal: Abdominal pain nausea : negative Musculoskeletal: negative Skin: negative Neurologic: negative Psych: negative Exam Narrative Exam Narrative: Physical Examination General: alert, awake, cooperative, tearful HEENT: normocephalic, atraumatic; PERRL, EOM intact, conjunctiva normal; slight drying of oral mucosa Neck: supple, trachea midline; full ROM Chest: normal to inspection Respiratory: normal respiratory effort, speaking in full sentences, clear to auscultation, no wheezing, rales or rhonchi Cardiac: regular rate, regular rhythm, S1S2 intact, no murmurs rubs or gallops GI: abdomen soft, non-tender, non-distended; no palpable mass or hepatosplenomegaly Skin: no lesions, rashes or trauma appreciated Neuro: AAOx3, normal speech, moving all extremities Psych: Appropriate mood and affect Course Vital Signs Vital signs: Vital Signs Temperature 36.6 C 08/06/23 07:01 Pulse 61 08/06/23 07:01 Respiratory Rate 16 08/06/23 07:01 Blood Pressure 107/70 08/06/23 07:01 Pulse Oximetry 100 08/06/23 07:01 Temperature 36.6 C 08/06/23 07:01 Temperature Source Oral 08/06/23 07:01 Pulse 61 08/06/23 07:01 Respiratory Rate 16 08/06/23 07:01 Blood Pressure 107/70 08/06/23 07:01 Blood Pressure Position Sitting 08/06/23 07:01 Pulse Oximetry 100 08/06/23 07:01 Oxygen Delivery Method Room Air 08/06/23 07:01 Oxygen Flow Rate 0 08/06/23 07:01 Pain Level 7 08/06/23 07:01 Lab/Test Results Lab/Test Results: POC- Test(urine) Negative Medical Decision Making 37-year-old female history of abdominal migraine presents with abdominal discomfort recurrent acute on chronic over the last several months, CT scan 1 month ago showing ovarian cyst and stool burden presents with acute abdominal pain this morning associate with nausea, no vomiting. Endorses recent endoscopy negative. History of alcohol abuse has been sober for approximately 120 days, does smoke marijuana; hemodynamically stable, nonperitoneal on examination, afebrile nontoxic, tearful and uncomfortable. Consider gastritis versus enteritis versus less likely colitis lower suspicion for cholecystitis and appendicitis, given prior diagnosis of abdominal migraine must consider this diagnosis as well, must also consider cannabinoid hyperemesis versus gastroparesis lower suspicion for symptomatic ovarian cyst given history and physical, will obtain basic labs will provide fluid analgesia antiemetic in the form of droperidol, screening EKG before medication, given patient's young age and recent CT scan within the last month consider holding imaging at this time will reconsider further labs and imaging based on repeat examination after medication and review of laboratory results 8: 30 patient resting comfortably no acute distress pain has subsided. No nausea no vomiting. Afebrile nontoxic. Counseled patient and family to follow-up close with primary care physician and GI specialist. Home care instructions and return precautions given Quality:SDOH Health Related Social Needs: No Data to Display PFSH All Active Problems (Updated 08/06/23 @ 08:31 by Shashi Carmen MD) Abdominal pain (Acute) Abdominal pain (Acute) Nausea & vomiting (Acute) Alcohol use disorder (Chronic) Medication monitoring encounter (Acute) Diarrhea (Acute ~08/2022) 09/23/22 DH GI Refractory nausea and vomiting (Acute ~08/2022) 09/23/22 DH GI Chronic rhinitis (Acute) 08/23/22 DH Allergy Rh D negative blood type (Acute) Encounter for preconception consultation (Acute) 07/2022. AMH 2.2 (0.15-7.5 ng/ml) Tobacco abuse (Acute) Major depressive disorder, recurrent, moderate (Acute) JORGE (generalized anxiety disorder) (Acute) ADHD, predominantly inattentive type (Chronic) Depression (Chronic) Medical History (Updated 08/06/23 @ 08:31 by Shashi Carmen MD) Nasal septal perforation Lip lesion Allergic rhinitis due to pollen 10/11/22 Dh Allergy Allergic rhinitis due to animal (cat) (dog) hair and dander 10/11/22 DH Allergy, and allergy skin testing Lactose intolerance 08/23/22 saw DH Allergy Hip dysplasia As a child. Family History Mother Melanoma Connective tissue disorder Nicolas-Danlos Syndrome Skin cancer Obesity Hypertension Arthritis Father Depression Hypertension Alcohol use disorder Paternal Grandmother Diabetes Brother Connective tissue disorder Anxiety ADHD Depression Social History (Updated 08/05/22 @ 18:43 by Miriam Matute MD) Smoking/Tobacco Use Status: Current-Occasional Tobacco Type: e-cigarettes Quit status: considering quitting Counseling given: other Smoking risk assessment performed?: Yes (offered help if pt wants to quit smoking) Alcohol Intake: current Alcohol Intake frequency: 0-2 drinks per day Counseling given: Yes Details: pt feels that alcohol not an issue right now Drug use: Daily Substance use type: marijuana and inhalants Counseling given: No Adopted: No Caregiver/Support person: No Foster care: No Household members: family and other Details: New relationship - Nate Housing: house Number of Children: 0 number of grandchildren: 0 Communication Needs: None Education Level: college Details: BS Do you need help understanding health information?: Never 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 Pets and animals: Yes Pets and animals: dog(s) Sexually active: Yes Do you think of yourself as: straight/heterosexual Current gender identity: female What is your relationship status?: never How often do you talk on the phone with friends or family?: three or more times per week How often do you get together with friends or relatives?: twice per week Do you belong to any clubs or organized social groups?: no Panel score (0-1 are the most socially isolated patients): 1 Duration: 15-30 minutes/day Frequency: 1-2 times per week Vesna/Oriental Orthodox: None Seatbelt use: always Helmet use: Yes Drive intox or ride w/intox class b driver: No Do you feel safe at home: Yes Do you feel safe in your relationship?: Yes
[2023-08-06 07:19] LABS: Bilirubin Negative (Negative); Blood Negative (Negative); Clarity Clear (Clear); Glucose Negative (Negative); Ketones 40 mg/dL (Negative); Leukocyte Esterase Negative (Negative); Nitrite Negative (Negative); Urobilinogen 0.2 mg/dL (Up to 0.2); pH 8.5 (5-8)
[2023-08-06] MEDS: Droperidol 5 MG/2 ML VIAL 1.25 MG IVP (07:29)
[2023-08-06 07:30] LABS: Abs Immature Grans 0.04 10^3/uL (0.0-0.06); Absolute Basophil Count 0.03 10^3/uL (0.0-0.2); Absolute Lymphocyte Count 2.05 10^3/uL (1.2-3.4); Absolute Neutrophil Count 7.16 10^3/uL (1.2-6.7); Basophils % 0.3 %; HCT 35.1 % (36.0-46.0); HGB 11.9 g/dL (11.2-15.7); Immature Grans % 0.4 %; MCH 30.1 pg (27.0-33.0); MCHC 33.9 % (32.0-36.0); MCV 89 fL (80-95); MPV 9.3 fL (8.0-11.0); Monocytes % 3.1 %; Neutrophils % 73.2 %; Platelet Count 472 10^3/uL (130-400); RBC 3.96 10^6/uL (3.93-5.22); RDW 12.7 % (11.7-14.6); RDW-SD 41.7 fL; WBC 9.78 10^3/uL (4.4-10.8)
[2023-08-06] MEDS: Normal Saline 1,000 ML 1000 ML IV (07:30)
[2023-08-06] MEDS: ACETAMINOPHEN 1,000 MG/100 ML BTL 400 MG IVPB (07:31)
[2023-08-06 07:39] LABS: ALT 21 U/L (14-59); AST 14 U/L (15-37); Albumin 4.4 g/dL (3.4-5.0); Alkaline Phosphatase 67 U/L (46-116); Anion Gap 12.1 mmol/L (3-11); BUN 10 mg/dL (7-18); Bilirubin, Total 0.53 mg/dL (0.2-1.0); CO2 25.9 mmol/L (21.0-32.0); CREATININE 0.8 mg/dL (0.55-1.02); Calcium 9.4 mg/dL (8.5-10.1); Chloride 102 mmol/L (98-107); Estimated GFR 97.87 (mL/min/1.73m2); Glucose 122 mg/dL (74-106); Lipase 27 U/L (16-77); Potassium 3.8 mmol/L (3.5-5.1); Sodium 140 mmol/L (136-145); Total Protein 7.6 g/dL (6.4-8.2)
[2023-08-06 07:45] VITALS: BP 120/74; PULSE 79; O2SAT 99
[2023-08-06 08:01] VITALS: BP 116/56; PULSE 55
[2023-08-06 08:38] VITALS: BP 98/58; PULSE 72; RESP 18; O2SAT 100
== END 2023-08-06 08:39 | disposition home or self-care (01) ==
PROVIDERS: Emergency Provider Emergency Medicine; PCP Nurse Practitioner
DX: R10.30 Lower abdominal pain, unspecified (principal); R11.0 Nausea
CPT/HCPCS: 80053; 81025; 83690; 93005; 96365; 96375; 99284; 81003; 85025; 93010; 99283; J0131; J1790

== ENCOUNTER → 2023-08-09 02:02 | Outpatient (CLI) | payer MEDICAID, SELFPAY ==
--- NOTE | 2023-08-09 09:01 | DI.RAD_ITS ---
Exam(s) XR FOOT LT COMPLETE XR ANKLE LT COMPLETE EXAM: XR ANKLE LT COMPLETE CLINICAL HISTORY: Left ankle pain.M25.572 TECHNIQUE: 2D digital imaging was performed. Three views of the ankle and foot. COMPARISON: CR XR FOOT LT COMPLETE from 08/09/2023 FINDINGS: BONES: No acute fracture is present. No bony destructive lesion is seen. JOINTS:The ankle mortise is normally aligned. Tibiotalar joint space is maintained. Degenerative c hanges at posterior talocalcaneal joint. SOFT TISSUE: Isabell swelling at lateral malleolus. IMPRESSION: Degenerative changes, greatest at the posterior talocalcaneal joint DATA REPOSITORY: RADIATION DOSE DELIVERED:
--- NOTE | 2023-08-09 09:02 | DI.RAD_ITS ---
Exam(s) XR ANKLE RT COMPLETE XR FOOT RT COMPLETE EXAM: XR ANKLE RT COMPLETE CLINICAL HISTORY: Right ankle pain.M25.571. TECHNIQUE: 2D digital imaging was performed. Three views of the ankle and three views of the foot.. COMPARISON: CR XR FOOT RT COMPLETE from 08/09/2023 CR XR ANKLE LT COMPLETE from 08/09/2023 FINDINGS: BONES: No acute fracture is present. No bony destructive lesion is seen. JOINTS: The ankle mortise is normally aligned. No significant joint space narrowing or periarticula r spurring. SOFT TISSUE: Normal. IMPRESSION: Unremarkable radiographs of the right ankle and foot. DATA REPOSITORY: RADIATION DOSE DELIVERED:
== END ==
PROVIDERS: PCP Nurse Practitioner; Visit Provider Podiatrist
DX: M79.672 Pain in left foot (principal); M25.572 Pain in left ankle and joints of left foot; M25.571 Pain in right ankle and joints of right foot; M79.671 Pain in right foot
CPT/HCPCS: 73610; 73630

== ENCOUNTER 2023-08-09 03:19 | Outpatient (CLI) | payer MEDICAID, SELFPAY ==
[2023-08-09 09:49] LABS: TSH (W/Ref FT4) 2.76 uIU/mL (0.36-3.74)
[2023-08-09 19:47] LABS: HIV-1/2 Ag & Ab Screen Negative (Negative)
[2023-08-11 10:39] LABS: TB Interpretation Negative (Negative)
== END 2023-08-09 03:20 | disposition home or self-care (01) ==
LOC: LBO 03:19
PROVIDERS: PCP Nurse Practitioner; Visit Provider Nurse Practitioner
DX: R61 Generalized hyperhidrosis (principal)
CPT/HCPCS: 36415; 87389; 84443; 86480

== ENCOUNTER → 2023-08-24 00:27 | Outpatient (CLI) | payer MEDICAID, SELFPAY ==
--- NOTE | 2023-08-24 06:45 | DI.RAD_ITS ---
Exam(s) XR HEEL LT OS CALCIS XR HEEL RT OS CALCIS EXAM: XR HEEL LT OS CALCIS CLINICAL HISTORY: ? Subtalar joint coalition,Q66.89. TECHNIQUE: 2D digital imaging was performed. Lateral and Cameron views of both heels. COMPARISON: CR XR ANKLE RT COMPLETE from 08/09/2023 CR XR FOOT LT COMPLETE from 08/09/2023 CR XR FOOT RT COMPLETE from 08/09/2023 CR XR ANKLE LT COMPLETE from 08/09/2023 CR XR HEEL RT OS CALCIS from 08/24/2023 FINDINGS: BONES: No acute fracture is present. No bony destructive lesion is seen. Tiny plantar calcaneal spur . Small dorsal talar spur. JOINTS: No dislocation present. There is lack of normal joint space at the posterior talocalcaneal j oint particularly when compared with the contralateral right side. 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 SOFT TISSUE: Normal. 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 DATA REPOSITORY: RADIATION DOSE DELIVERED:
== END ==
PROVIDERS: PCP Nurse Practitioner; Visit Provider Podiatrist
DX: Q66.89 Other specified congenital deformities of feet (principal)
CPT/HCPCS: 73650

== ENCOUNTER 2023-09-05 09:33 | Outpatient (REF) | payer MEDICAID, SELFPAY ==
--- NOTE | 2023-09-05 09:30 | PAPFT_PTH ---
PATIENT: Miya Dee LOC: [facility] U#:[id number] AGE/SX: 37/F ROOM: RE09/05/[address]: Miriam Matute : 1985 BED: DIS: 09/05/2023 SPEC #: [id number] RECD: 09/05/23 13:23 STATUS: SWATI REKim #: [id number] COURTNEY: 09/05/23 09:[address]: Miriam Matute DEPT: [facility] Cytology RECD BY: Marlys Fermin ENTERED: 09/05/23 13:23 SP TYPE: PAPFT OTHR DR: Lissa Clark APRN Tissues: 1 - CX/ENDOCX FOR PAP SMEARS Procedures: PAP THIN PREP/[facility] Screening HPV DNA PROBE Comments: [id number] (HPV A6 & 18/45)
[2023-09-06 13:06] LABS: Chlamydia Result Negative (Negative); GC Result Negative (Negative)
== END 2023-09-05 09:34 | disposition home or self-care (01) ==
LOC: LBN 09:33
PROVIDERS: PCP Nurse Practitioner; Visit Provider Obstetrics & Gynecology Gynecology
DX: Z11.3 Encounter for screening for infections with a predominantly sexual mode of transmission (principal); Z01.419 Encounter for gynecological examination (general) (routine) without abnormal findings
CPT/HCPCS: 87491; 87591; 88142; 87624

== ENCOUNTER 2024-07-11 00:34 | Outpatient (CLI) | payer MEDICAID, SELFPAY ==
--- NOTE | 2024-07-11 09:00 | DI.US_ITS ---
Exam(s) US ABDOMEN LIMITED EXAM: US ABDOMEN LIMITED CLINICAL HISTORY: R11.2 Upper abd pain with Nausea/vomitting, unspecified vomiting type TECHNIQUE: Ultrasound abdomen performed using standard protocol. COMPARISON: No exams were available for comparison FINDINGS: LIVER: Normal size. Normalechogenicity. No focal liver lesions are seen.. GALLBLADDER: No evidence of cholelithiasis. No evidence of wall thickening. No pericholecystic fluid identified. BLANC'S SIGN: Negative. BILIARY SYSTEM: No intrahepatic or extrahepatic biliary ductal dilation. RIGHT KIDNEY: Normal size. No evidence of renal calculi. No evidence of hydronephrosis. No suspicious renal mass. No cyst identified. PANCREAS: Normal where visualized. ABDOMINAL AORTA AND IVC: Visualized portions normal caliber. ASCITES: None seen. IMPRESSION: Normal sonographic appearance of the right upper quadrant. DATA REPOSITORY:
--- NOTE | 2024-07-11 09:32 | DI.RAD_ITS ---
Exam(s) XR ABDOMEN FLAT UPRIGHT EXAM: 2D digital imaging was performed. CLINICAL HISTORY: R11.2 Nausea Vmitting, unspecified vomiting type, Assess stool burden. COMPARISON: No exams were available for comparison TECHNIQUE: Supine and uprightSupine and Lateral views of the abdomen were performed. FINDINGS: BOWEL GAS PATTERN: The stomach and small bowel are nondistended.No free air. There is a moderate crow ntity of stool mainly seen the transverse colon through the sigmoid. CALCIFICATIONS: No urinary tract calcifications. OSSEOUS STRUCTURES: Normal for age. Visualized portions of chest: Unremarkable. Soft tissues: Unremarkable. IMPRESSION: 1. Nonobstructive bowel gas pattern. Moderate quantity of stool. 2. No radiopaque calculi. 3. No free air. DATA REPOSITORY: RADIATION DOSE DELIVERED:
== END 2024-07-11 00:54 ==
PROVIDERS: PCP Nurse Practitioner; Visit Provider Nurse Practitioner Family
DX: R11.2 Nausea with vomiting, unspecified (principal)
CPT/HCPCS: 74019; 76705

== ENCOUNTER 2024-09-07 09:00 | Outpatient (CLI) | payer MEDICAID, SELFPAY ==
[2024-09-07 16:47] LABS: Abs Immature Grans 0.01 10^3/uL (0.0-0.06); HCT 33.4 % (36.0-46.0); HGB 11.4 g/dL (11.2-15.7); Immature Grans % 0.1 %; MCH 30.5 pg (27.0-33.0); MCHC 34.1 % (32.0-36.0); MCV 89 fL (80-95); MPV 9.2 fL (8.0-11.0); Platelet Count 413 10^3/uL (130-400); RBC 3.74 10^6/uL (3.93-5.22); RDW 12.6 % (11.7-14.6); RDW-SD 41.3 fL; WBC 9.72 10^3/uL (4.4-10.8)
[2024-09-07 16:58] LABS: Hemoglobin A1C 5.2 % (<5.7)
[2024-09-07 18:11] LABS: ALT 27 U/L (14-59); AST 17 U/L (15-37); Albumin 4.2 g/dL (3.4-5.0); Alkaline Phosphatase 63 U/L (46-116); Anion Gap 10.8 mmol/L (3-11); BUN 14 mg/dL (7-18); Bilirubin, Total 0.3 mg/dL (0.2-1.0); CO2 25.2 mmol/L (21.0-32.0); Calcium 9.6 mg/dL (8.5-10.1); Calculated LDL 116 mg/dL (<100); Chloride 103 mmol/L (98-107); Cholesterol 209 mg/dL (<200); Estimated GFR 97.26 (mL/min/1.73m2); Glucose 117 mg/dL (74-106); HDL Cholesterol 82 mg/dL (>or=50); Potassium 3.6 mmol/L (3.5-5.1); Sodium 139 mmol/L (136-145); TSH (W/Ref FT4) 1.19 uIU/mL (0.36-3.74); Total Protein 7.3 g/dL (6.4-8.2); Triglyceride 57 mg/dL (<150); Vitamin D 25 Total 67 ng/mL (30-100)
[2024-09-10 10:36] LABS: Hepatitis C Ab w Rflx HCV PCR Negative (Negative)
== END 2024-09-07 09:01 | disposition home or self-care (01) ==
LOC: LBO 09:00
PROVIDERS: PCP Nurse Practitioner; Visit Provider Obstetrics & Gynecology
DX: F10.11 Alcohol abuse, in remission (principal); Z01.419 Encounter for gynecological examination (general) (routine) without abnormal findings; Z31.62 Encounter for fertility preservation counseling; R53.83 Other fatigue; O26.899 Other specified pregnancy related conditions, unspecified trimester; Z67.91 Unspecified blood type, Rh negative; Z13.6 Encounter for screening for cardiovascular disorders; Z11.59 Encounter for screening for other viral diseases
CPT/HCPCS: 36415; 80053; 80061; 82306; 86803; 86850; 86900; 86901; 87340; 83036; 84443; 85025

== ENCOUNTER 2024-09-07 09:07 | Outpatient (REF) | payer MEDICAID, SELFPAY | END 2024-09-07 09:08 | disposition home or self-care (01) | LOC: LBN 09:07 | PROVIDERS: PCP Nurse Practitioner; Visit Provider Obstetrics & Gynecology | DX: Z11.51 Encounter for screening for human papillomavirus (HPV) (principal); Z01.419 Encounter for gynecological examination (general) (routine) without abnormal findings; R87.610 Atypical squamous cells of undetermined significance on cytologic smear of cervix (ASC-US) | CPT/HCPCS: 88142; 87624 ==

== ENCOUNTER 2024-11-16 11:59 | Outpatient (REF) | payer MEDICAID, SELFPAY | END 2024-11-16 12:00 | disposition home or self-care (01) | LOC: LBN 11:59 | PROVIDERS: PCP Nurse Practitioner; Visit Provider Obstetrics & Gynecology | DX: D26.0 Other benign neoplasm of cervix uteri (principal) | CPT/HCPCS: 88305 ==